=== PATIENT | male | born 2005 | race Caucasian/White ===

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

== ENCOUNTER 2024-02-22 22:20 | Emergency (ER) | payer OTHER ==
[2024-02-22] MEDS ORDERED: ONDANSETRON 4 MG/2 ML VIAL ONE (23:06)
[2024-02-22] MEDS ORDERED: KETOROLAC 30 MG/ML INJ ONE (23:06)
[2024-02-22] MEDS ORDERED: FAMOTIDINE 20 MG/2 ML VIAL IV ONE (23:06)
[2024-02-22] MEDS ORDERED: NA CHLORIDE 0.9% 1,000 ML ONE (23:07)
[2024-02-22 23:40] LABS: Absolute Lymphocytes (CBC) 1.2 K/uL (0.7-4.9); Absolute Monocytes 0.5 K/uL (0.1-1.3); Absolute Neutrophil 13.2 K/uL (1.8-8.0); Basophils % 0.3 % (0-1.3); Eosinophils % 0.1 % (0-4.4); Hematocrit 41.9 % (39.6-49.0); Hemoglobin 14.2 g/dL (13.6-17.9); Lymphocytes % 7.9 % (15.3-44.8); MCH 29.3 pg (27.0-35.0); MCV 86.2 fL (80-100); MPV 7.7 fL (7.6-11.3); Monocytes % 3.5 % (3.3-12.3); Neutrophils % 88.2 % (41.7-73.7); Platelets 333 thou/uL (152-406); RBC Red Blood Cell Count 4.86 M/uL (4.33-5.43); Red Cell Distribution Width 14.3 % (12.1-15.2)
[2024-02-22 23:49] LABS: Specific Gravity 1.028 (1.005-1.030); Sqamous Epithelial None Seen /HPF (None Seen); Urine Bacteria None Seen /HPF (<20); Urine Bilirubin NEGATIVE (Negative); Urine Blood Negative (Negative); Urine Clarity Clear (Clear); Urine Color Yellow (Yellow); Urine Culture Reflex Order NOT NEEDED; Urine Glucose NEGATIVE (Negative); Urine Ketones NEGATIVE (Negative); Urine Microscopic Reflex YN ORDER UMIC; Urine Mucus Slight /HPF (None Seen); Urine Nitrite NEGATIVE (Negative); Urine Protein TRACE (Negative); Urine RBC <5 /HPF (None Seen); Urine Urobilinogen 3+ (Normal); Urine WBC <5 /HPF (<5)
[2024-02-22 23:53] LABS: Albumin 3.8 g/dL (3.4-5.0); Albumin/Globulin Ratio 0.9 (1.1-1.8); Anion Gap 7.3 mEq/L (5.0-15.0); Bilirubin Total 0.6 mg/dL (0.2-1.0); Globulin 4.3 g/dL (2.3-3.5); Potassium 3.3 mEq/L (3.5-5.1); Protein, Total 8.1 g/dL (6.4-8.2)
[2024-02-23] MEDS ORDERED: POTASSIUM 25 MEQ EFFERV TAB ONE (01:47)
--- NOTE | 2024-02-23 01:54 | EDPHYS ---
Physician Documentation [facility] Name: Jay Huston Age: 18 yrs Sex: Male : 2005 Arrival Date: 02/22/2024 Time: 22:20 Bed 6 Private MD: ED Physician Ivan Antunez HPI: 02/21 23:00 This 18 yrs old Male presents to ER via Ambulatory with complaints of Flu Symptoms. cp 23:00 The patient presents with abdominal pain that is diffuse, nausea. Onset: The cp symptoms/episode began/occurred today. Associated signs and symptoms: Pertinent negatives: diarrhea, fever, testicular pain, vomiting. The symptoms are described as constant. 23:00 Severity of pain: in the emergency department the pain is unchanged despite home cp interventions. Patient reports ingesting mushrooms today and now having abdominal pain, nausea. Historical: - Allergies: 22:28 Bees; as6 22:28 SHELLFISH; as6 22:28 Wasps; as6 - PMHx: 22:28 None; as6 - PSHx: 22:28 None; as6 - Immunization history:: Adult Immunizations up to date. - Infectious Disease History:: Denies. - Social history:: Smoking status: Patient denies any tobacco usage or history of. ROS: 23:05 Constitutional: Negative for body aches, chills, fever, cp 23:05 Eyes: Negative for injury, pain, redness, and discharge, cp 23:05 ENT: Negative for drainage from ear(s), ear pain, difficulty swallowing, difficulty handling secretions, 23:05 Cardiovascular: Negative for chest pain, 23:05 Respiratory: Negative for cough, shortness of breath, wheezing, 23:05 Abdomen/GI: Positive for abdominal pain, nausea, Negative for vomiting, diarrhea, constipation, 23:05 Neuro: Negative for altered mental status, 23:05 All other systems are negative, Exam: 23:10 Constitutional: The patient appears in no acute distress, alert, awake, non-toxic, well cp developed, well nourished, 23:10 Head/Face: Normocephalic, atraumatic. cp 23:10 Eyes: Periorbital structures: appear normal, Conjunctiva: normal, no exudate, no injection, Sclera: no appreciated abnormality, Lids and lashes: appear normal, bilaterally, 23:10 ENT: External ear(s): are unremarkable, Nose: is normal, Mouth: Lips: moist, Oral mucosa: pink and intact, moist, Posterior pharynx: Airway: no evidence of obstruction, patent, Tonsils: no enlargement, no erythema, no exudate, erythema, is not appreciated, exudate, is not appreciated, 23:10 Chest/axilla: Inspection: normal, 23:10 Cardiovascular: Rate: normal, Rhythm: regular, 23:10 Respiratory: the patient does not display signs of respiratory distress, Respirations: normal, no use of accessory muscles, no retractions, labored breathing, is not present, Breath sounds: are clear throughout, no decreased breath sounds, no stridor, no wheezing, 23:10 Abdomen/GI: Inspection: abdomen appears normal, Bowel sounds: active, all quadrants, Palpation: soft, in all quadrants, moderate abdominal tenderness, rebound tenderness, is not appreciated, 23:10 Back: CVA tenderness, is absent, 23:10 Neuro: Orientation: to person, place \T\ time. Mentation: is normal, Vital Signs: 22:26 BP 119 / 69; Pulse 87; Resp 16 S; Temp 97.5(TE); Pulse Ox 99% on R/A; Weight 104.33 kg; as6 Height 6 ft. 0 in. ; Pain 4/10; 23:24 BP 130 / 65; Pulse 77; Resp 17; Temp 98; Pulse Ox 96% on R/A; Pain 6/10; rg5 02/22 00:30 BP 104 / 58; Pulse 85; Resp 17; Temp 98; Pulse Ox 98% on R/A; Pain 0/10; rg5 01:51 BP 107 / 71; Pulse 75; Resp 17; Temp 98; Pulse Ox 96% ; Pain 0/10; rg5 02/21 22:26 Body Mass Index 31.19 (104.33 kg, 182.88 cm) - Percentile 96.4 % as6 02/21 22:26 Pain Scale: Adult as6 23:24 Pain Scale: Adult rg5 02/22 00:30 Pain Scale: Adult rg5 01:51 Pain Scale: Adult rg5 Jackson Coma Score: 02/21 23:24 Eye Response: spontaneous(4). Motor Response: obeys commands(6). Verbal Response: rg5 oriented(5). Total: 15. MDM: 22:31 Patient medically screened. cp 23:00 Differential diagnosis: appendicitis, bowel obstruction, diverticulitis, gastritis, cp non-specific abd pain, pancreatitis, Peptic Ulcer Disease, Pyelonephritis, Ureterolithiasis, urinary tract infection. 02/22 01:53 Data reviewed: vital signs, nurses notes, lab test result(s), radiologic studies, CT cp scan, and as a result, I will discharge patient. 01:53 I considered the following discharge prescriptions or medication management in the emergency department Medications were administered in the Emergency Department. See MAR. Counseling: I had a detailed discussion with the patient and/or guardian regarding the historical points, exam findings, and any diagnostic results supporting the discharge/admit diagnosis, lab results, radiology results, to return to the emergency department if symptoms worsen or persist or if there are any questions or concerns that arise at home. Special discussion: Based on the patient's Hx, exam, and Dx evaluation, there is no indication for emergent surgery or inpatient Tx. It is understood by the patient/guardian that if the Sx's persist or worsen they need to return immediately for re-evaluation. 02/21 22:53 Order name: CBC with Diff 02/22 00:49 Interpretation: Normal except: WBC 14.90; BETZY% 88.2; LYM% 7.9; NEUT A 13.2. 02/21 22:53 Order name: CMP; Complete Time: 00:49 cp 02/21 22:53 Order name: Lipase; Complete Time: 00:49 cp 02/21 22:53 Order name: Urinalysis w/ reflexes; Complete Time: 23:50 cp 02/21 22:53 Order name: UDS cp 02/22 00:50 Order name: CT Abd/Pelvis - IV Contrast Only cp 02/21 22:53 Order name: IV Saline Lock; Complete Time: 23:22 cp 02/21 22:53 Order name: Labs collected and sent; Complete Time: 23:22 cp Administered Medications: 02/21 23:22 Drug: NS 0.9% IV 1000 ml IV at 1 bolus Per protocol; 1000 mL bolus Route: IV; Rate: 1 rg5 bolus; Site: right forearm; 02/22 00:39 Follow up: IV Status: Completed infusion rg5 02/21 23:22 Drug: Famotidine IVP 20 mg IVP once; dilute with 10 mL 0.9% NaCl; give over 2 minutes rg5 Route: IVP; Site: right forearm; 02/22 00:16 Follow up: Response: No adverse reaction rg5 02/21 23:22 Drug: TORadol - Ketorolac IVP 15 mg IVP once Route: IVP; Site: right forearm; rg5 02/22 00:17 Follow up: Response: Pain is decreased rg5 02/21 23:22 Drug: Ondansetron IVP 4 mg IVP once; over 2 minutes Route: IVP; Site: right forearm; rg5 02/22 00:17 Follow up: Response: No adverse reaction 5 01:49 Drug: Potassium PO Effervescent Tablet 25 mEq PO once; dissolve in 4 ounces of water or rg5 juice Route: PO; Disposition Summary: 02/23/24 01:54 Discharge Ordered Notes: Location: Home cp Problem: new cp Symptoms: have improved cp Condition: Stable cp Diagnosis - Nausea with vomiting, unspecified cp - Abdominal pain, unspecified cp Followup: cp - With: Emergency Department - When: 2 - 3 days - Reason: Worsening of condition Discharge Instructions: - Discharge Summary Sheet cp - Abdominal Pain, Adult cp - Nausea and Vomiting, Adult cp Forms: - Medication Reconciliation Form cp - Antibiotic Education cp - Prescription Opioid Use cp - Patient Portal Instructions cp - Leadership Thank You Letter cp Prescriptions: - Zofran 4 mg Oral Tablet - take 1 tablet ORAL route every 12 hours As needed; 20 tablet; Refills: 0, cp Product Selection Permitted Addendum: 02/24/2024 09:43 Co-signature as Attending Physician, Ivan Antunez MD I reviewed the patient's care r t provided by the Advanced Practice Provider and agree with the diagnosis and treatment plan. Signatures: Dispatcher [employer] EDAK Eduar Troncoso PA PA cp Wali Santillan RN RN as6 Ivan Antunez MD MD rt Mando Castaneda, RN RN rg5
--- NOTE | 2024-02-23 01:54 | ER ---
Nurse's Notes [facility] Name: Jay Huston Age: 18 yrs Sex: Male : 2005 Arrival Date: 02/22/2024 Time: 22:20 Bed 6 Private MD: Diagnosis: Nausea with vomiting, unspecified;Abdominal pain, unspecified Presentation: 02/21 22:26 Chief complaint: Patient states: pt ate some chocolate with shrooms in it and not pt as6 states he feels terrible. Coronavirus screen: At this time, the client does not indicate any symptoms associated with coronavirus-19. Ebola Screen: No symptoms or risks identified at this time. Initial Sepsis Screen: Does the patient meet any 2 criteria? No. Patient's initial sepsis screen is negative. Does the patient have a suspected source of infection? No. Patient's initial sepsis screen is negative. Risk Assessment: Do you want to hurt yourself or someone else? Patient reports no desire to harm self or others. Onset of symptoms was February 22, 2024. 22:26 Acuity: BETO 3 as6 22:26 Method Of Arrival: Ambulatory as6 Historical: - Allergies: 22:28 Bees; as6 22:28 SHELLFISH; as6 22:28 Wasps; as6 - PMHx: 22:28 None; as6 - PSHx: 22:28 None; as6 - Immunization history:: Adult Immunizations up to date. - Infectious Disease History:: Denies. - Social history:: Smoking status: Patient denies any tobacco usage or history of. Screenin:24 [facility] ED Fall Risk Assessment (Adult) History of falling in the last 3 months, rg5 including since admission No falls in past 3 months (0 pts) Confusion or Disorientation No (0 pts) Intoxicated or Sedated No (0 pts) Impaired Gait No (0 pts) Mobility Assist Device Used No (0 pt) Altered Elimination No (0 pt) Score/Fall Risk Level 0 - 2 = Low Risk. Abuse screen: Denies threats or abuse. Nutritional screening: No deficits noted. Tuberculosis screening: No symptoms or risk factors identified. Assessment: 23:24 General: Appears in no apparent distress. comfortable, Behavior is calm, cooperative, rg5 appropriate for age. Pain: Complains of pain in abdomen Pain does not radiate. Pain currently is 6 out of 10 on a pain scale. Quality of pain is described as crampy, Pain began 2 hours ago. Is intermittent. Neuro: Level of Consciousness is awake, alert, obeys commands, Oriented to person, place, time, situation. Cardiovascular: Capillary refill < 3 seconds. Respiratory: Airway is patent Trachea midline Respiratory effort is even, unlabored, relaxed. GI: Abdomen is round Reports cramping. : No signs and/or symptoms were reported regarding the genitourinary system. EENT: No deficits noted. Derm: Skin is intact, Skin is dry, Skin is pink, warm \T\ dry. Musculoskeletal: Range of motion: intact in all extremities. 02/22 01:50 Reassessment: Patient and/or family updated on plan of care and expected duration. Pain rg5 level reassessed. Patient is alert, oriented x 3, equal unlabored respirations, skin warm/dry/pink. Patient states feeling better. Patient states symptoms have improved. Vital Signs: 02/21 22:26 BP 119 / 69; Pulse 87; Resp 16 S; Temp 97.5(TE); Pulse Ox 99% on R/A; Weight 104.33 kg; as6 Height 6 ft. 0 in. ; Pain 4/10; 23:24 BP 130 / 65; Pulse 77; Resp 17; Temp 98; Pulse Ox 96% on R/A; Pain 6/10; rg5 02/22 00:30 BP 104 / 58; Pulse 85; Resp 17; Temp 98; Pulse Ox 98% on R/A; Pain 0/10; rg5 01:51 BP 107 / 71; Pulse 75; Resp 17; Temp 98; Pulse Ox 96% ; Pain 0/10; rg5 02/21 22:26 Body Mass Index 31.19 (104.33 kg, 182.88 cm) - Percentile 96.4 % as6 02/21 22:26 Pain Scale: Adult as6 23:24 Pain Scale: Adult rg5 02/22 00:30 Pain Scale: Adult rg5 01:51 Pain Scale: Adult rg5 Ruma Coma Score: 02/21 23:24 Eye Response: spontaneous(4). Motor Response: obeys commands(6). Verbal Response: rg5 oriented(5). Total: 15. ED Course: 22:21 Patient arrived in ED. mr 22:22 Eduar Troncoso PA is PHCP. cp 22:22 Ivan Antunez MD is Attending Physician. cp 22:26 Arm band placed on right wrist. as6 22:28 Triage completed. as6 22:53 Mando Castaneda, RN is Primary Nurse. rg5 23:17 Initial lab(s) drawn, by me, sent to lab. Inserted saline lock: 20 gauge in left bm8 forearm, using aseptic technique. Blood collected. 23:24 Resting quietly. rg5 23:24 Patient has correct armband on for positive identification. Bed in low position. Call rg5 light in reach. Side rails up X 1. Client placed on continuous cardiac and pulse oximetry monitoring. NIBP monitoring applied. Pulse ox on. NIBP on. Door closed. Noise minimized. Lights dimmed. Warm blanket given. PO fluids given. 23:24 No provider procedures requiring assistance completed. rg5 23:29 Urinalysis w/ reflexes Sent. bm8 23:29 UDS Sent. bm8 02/22 00:30 Appears to be sleeping. rg5 01:05 CT Abd/Pelvis - IV Contrast Only In Process Unspecified. EDMS 01:50 Appears to be sleeping. rg5 02:00 Provided Education on: zofran . kd3 02:00 IV discontinued, intact, bleeding controlled, No redness/swelling at site. Pressure kd3 dressing applied. Administered Medications: 02/21 23:22 Drug: NS 0.9% IV 1000 ml IV at 1 bolus Per protocol; 1000 mL bolus Route: IV; Rate: 1 rg5 bolus; Site: right forearm; 02/22 00:39 Follow up: IV Status: Completed infusion [facility] 02/21 23:22 Drug: Famotidine IVP 20 mg IVP once; dilute with 10 mL 0.9% NaCl; give over 2 minutes rg Route: IVP; Site: right forearm; 02/22 00:16 Follow up: Response: No adverse reaction [facility] 02/21 23:22 Drug: TORadol - Ketorolac IVP 15 mg IVP once Route: IVP; Site: right forearm; 5 02/22 00:17 Follow up: Response: Pain is decreased [facility] 02/21 23:22 Drug: Ondansetron IVP 4 mg IVP once; over 2 minutes Route: IVP; Site: right forearm; rg5 02/22 00:17 Follow up: Response: No adverse reaction rg5 01:49 Drug: Potassium PO Effervescent Tablet 25 mEq PO once; dissolve in 4 ounces of water or rg5 juice Route: PO; Medication: 02/21 23:24 VIS not applicable for this client. rg5 Outcome: 02/22 01:54 Discharge ordered by . cp 02:00 Discharged to home ambulatory, kd3 02:00 Condition: stable 02:00 Discharge instructions given to patient, Instructed on discharge instructions, follow up and referral plans. Demonstrated understanding of instructions, follow-up care, medications, Prescriptions given X 1, 02:01 Patient left the ED. kd3 Signatures: Dispatcher [employer] EDMS Liza Ortiz, Reg Reg mr Eduar Troncoso, Wali Yao cp, RN RN as6 Ester Santos RN RN kd3 Ji Barreto, RN RN bm8 Mando Castaneda RN RN rg5 Corrections: (The following items were deleted from the chart) 02/21 23:48 23:24 Pain: Pain currently is 6 out of 10 on a pain scale. rg5 rg5
[2024-02-23 02:27] LABS: Barbiturates NEGATIVE (NEGATIVE); Benzodiazepines NEGATIVE (NEGATIVE); Cocaine NEGATIVE (NEGATIVE); METHAMPHETAM NEGATIVE (NEGATIVE); Methadone NEGATIVE (NEGATIVE); Opiates NEGATIVE (NEGATIVE); Phencyclidine NEGATIVE (NEGATIVE); THC Cannibis NEGATIVE (NEGATIVE)
[2024-02-23 02:31] VITALS: BP 107/71; TEMP 98; O2SAT 96
[2024-02-23 02:37] LABS: Blood Morphology Comment NOT SEEN (NOT SEEN); Platelet Estimate ADEQ; White Blood Cell Scan OK (OK)
--- NOTE | 2024-02-23 17:14 | RAD REPORT ---
EXAM DESCRIPTION: CT - Abdomen Pelvis W Contrast - 02/23/2024 6:48 am CLINICAL HISTORY: 18 years Male; ABD PAIN; IV ONLY Bed Name: 6 TECHNIQUE: CT of the abdomen and pelvis with intravenous contrast. All CT scans at this facility use dose modulation, iterative reconstruction, and/or weight based dosi ng when appropriate to reduce radiation dose to as low as reasonably achievable. COMPARISON: None. FINDINGS: Lower thorax: Bibasilar atelectasis. Abdomen: Stomach: Within normal limits Liver: Calcified granuloma in the right hepatic lobe. No intrahepatic ductal distention. Gallbladder: Nondistended Pancreas: Within normal limits Spleen: Calcified granulomas noted. Right kidney: No hydronephrosis. No focal lesion. Left kidney: No hydronephrosis. No focal lesion. Adrenal glands: Within normal limits Vascular structures: Within normal limits Nodes: No lymphadenopathy by size criteria Pelvis: Small bowel: No significant distention. Appendix: Within normal limits Colon: No distention or acute pericolonic edema. Peritoneum: No free intraperitoneal fluid or air. Bones: No acute bone findings. Bladder: Unremarkable. Reproductive organs: No acute findings. IMPRESSION: No acute abdominopelvic findings. Electronically signed by: Kev Qureshi MD 02/23/2024 01:39 AM CDT RP Z9 Due to temporary technical issues with the PACS/Fluency reporting system, reports are being signed by the in house radiologists without review as a courtesy to insure prompt reporting. The interpreting radiologist is fully responsible for the content of the report.
== END 2024-02-23 02:01 | disposition home or self-care (01) ==
LOC: ER 22:20
DX: R11.2 Nausea with vomiting, unspecified (principal); R10.9 Unspecified abdominal pain
CPT/HCPCS: 96361; 85025; 81001; 36415; 83690; 80053; 80307; 74177; 96375; 96374; 99284; Q9967; J2405; J7030